=== PATIENT | male | born 1985 | race Caucasian/White ===

== ENCOUNTER 2019-09-24 13:12 | Emergency (ER) | payer MEDICAID, MEDICARE, OTHER, SELFPAY ==
[~2019-09-24] VITALS: Ht 180.3 cm; Wt 79.9 kg
--- NOTE | 2019-09-24 13:28 | NUR ---
BROUGHT BACK FROM TRIAGE WITH CHIEF COMPLAINT OF RIGHT KNEE PAIN, PRIOR INJURY 3-4 MONTHS AGO, 09/21 INJURED KNEE AT WORK "HEARD POP". REFURED TO [facility] FROM [facility]. [facility]ICE WON'T SEE PT.
[2019-09-24] MEDS ORDERED: KETOROLAC 30 MG/1 ML IM ONE (14:00)
[2019-09-24] MEDS ORDERED: KETOROLAC 60 MG/2 ML ONE (14:02)
--- NOTE | 2019-09-24 14:03 | NUR ---
RUBY ALMENDAREZ AT BEDSIDE FOR EVALUATION
[2019-09-24 14:06] VITALS: BP 108/72
--- NOTE | 2019-09-24 14:07 | NUR ---
REFFERAL PROVIDED, DC INSTRUCTIONS REVIEWED
== END 2019-09-24 14:17 | disposition home or self-care (01) ==
LOC: ED 14:00
DX: S83.211A Bucket-handle tear of medial meniscus, current injury, right knee, initial encounter (principal); F17.200 Nicotine dependence, unspecified, uncomplicated; X58.XXXA Exposure to other specified factors, initial encounter; Y93.61 Activity, american tackle football; Y92.89 Other specified places as the place of occurrence of the external cause; Y99.8 Other external cause status
CPT/HCPCS: 96372; 99283; J1885

== ENCOUNTER 2020-10-15 18:45 | Emergency (ER) | payer SELFPAY ==
[~2020-10-15] VITALS: Ht 180.3 cm; Wt 71.4 kg
[2020-10-15 18:58] VITALS: BP 107/75
--- NOTE | 2020-10-15 22:56 | NUR ---
staffing consultant note: Pt to room from lobby.
--- NOTE | 2020-10-15 23:04 | NUR ---
PT PRESENTS TO ED WITH WART ON THE BOTTOM OF HIS FOOT. PT STATES IT IS VERY PAINFUL AND THE PAIN IS UP INTO THE TOP OF HIS FOOT. PT STATES THAT HE HAD IT FROZEN TWICE AT [facility] AND ITS IS STILL THERE.
--- NOTE | 2020-10-15 23:29 | NUR ---
Patient given discharge instructions and they have confirmed that they understand the instructions. Patient ambulatory with steady gait. VS REFUSED
[2020-10-15] MEDS ORDERED: IBUPROFEN 600 MG TABLET PO ONE (23:30)
[2020-10-15] MEDS ORDERED: ACETAMINOPHEN 500 MG TABLET PO ONE (23:30)
== END 2020-10-15 23:31 | disposition home or self-care (01) ==
LOC: ED 19:15
DX: B07.0 Plantar wart (principal)
CPT/HCPCS: 99282